=== PATIENT | female | born 1945 | race Caucasian/White ===

== ENCOUNTER 2018-05-27 14:30 | Emergency (ER) | payer MEDICARE ==
[~2018-05-27] VITALS: Wt 72.7 kg
[2018-05-27] MEDS ORDERED: SOD CHLORIDE 0.9% 1,000 ML IV STA (16:42)
[2018-05-27] MEDS ORDERED: ASPIRIN 81 MG TAB PO STA (16:42)
--- NOTE | 2018-05-27 17:46 | ERD ---
ER Documentation Chief Complaint Chief Complaint Palpitations HPI This is a 72-year-old female who said she was looking at her iPhone and suddenly her visual field bilaterally became a tunnel vision that went away after about 2-3 seconds, right after that she started getting heart palpitations/tachycardia but did not take her pulse for about 30 minutes, she said she was having anxiety about the visual change she was having tremors in her arms and numbness in her hands. She had no focal neurological complaints of numbness weakness speech change, and currently she feels back to normal. The patient has been taking Claritin-D over the past week for a sinus issue ROS All systems reviewed and are negative except as per history of present illness. Allergies Allergies: Coded Allergies: Penicillins (Verified Allergy, Intermediate, 05/27/18) Pt states I have a sensativity , I get a yeast infection. PMhx/Soc History of Surgery: Yes (L hand surgery, tubal ligation) Anesthesia Reaction: No Hx Neurological Disorder: No Hx Respiratory Disorders: No Hx Cardiac Disorders: No Hx Psychiatric Problems: No Hx Alcohol Use: Yes (socially) Hx Substance Use: No Hx Tobacco Use: No (Quit 2 years ago. ) Smoking Status: Former smoker FmHx Family History: No coronary disease Physical Exam Vitals Vital Signs Date Temp Pulse Resp B/P (MAP) Pulse Ox O2 O2 Flow FiO2 Time Delivery Rate 05/27/18 91 18 132/112 96 Room Air 18:24 (119) 05/27/18 91 18 127/84 96 Room Air 17:54 (98) 05/27/18 2 16:57 05/27/18 2.0 16:27 05/27/18 98.8 108 22 133/88 96 Room Air 16:27 (103) 05/27/18 99.0 133 18 165/80 99 14:33 (108) Physical Exam Const: Well-developed, well-nourished Head: Atraumatic, normocephalic Eyes: Normal Conjunctiva, PERRLA, EOMI, normal sclera, no nystagmus ENT: Normal External Ears, Nose and Mouth, moist mucus membranes. Neck: Full range of motion. No meningismus, no lymphadenopathy. Resp: Clear to auscultation bilaterally, no wheezing, rhonchi, rales Cardio: Regular rate and rhythm, no murmurs, S1 S2 present Abd: Soft, non tender x 4, non distended. Normal bowel sounds, no guarding or rebound, no pulsitile abdominal masses or bruits Skin: No petechiae or rashes, no ecchymosis , no maculopapular rash Back: No midline or flank tenderness Ext: No cyanosis, or edema, FROM x 4, normal inspection, neurovascularly intact x 4 Neur: Awake and alert, STR 5/5 x 4, sensation intact x 4, no focal findings, cerebellum intact Psych: Normal Mood and Affect Result Diagram: 05/27/18 1654 05/27/18 1654 Results 24 hrs Laboratory Tests Test 05/27/18 16:54 White Blood Count 6.3 10^3/ul Red Blood Count 4.42 10^6/ul Hemoglobin 12.9 g/dl Hematocrit 39.4 % Mean Corpuscular Volume 89.1 fl Mean Corpuscular Hemoglobin 29.2 pg Mean Corpuscular Hemoglobin Concent 32.7 g/dl Red Cell Distribution Width 12.6 % Platelet Count 202 10^3/UL Mean Platelet Volume 9.5 fl Immature Granulocytes % 0.500 % Neutrophils % 56.7 % Lymphocytes % 34.3 % Monocytes % 7.7 % Eosinophils % 0.5 % Basophils % 0.3 % Nucleated Red Blood Cells % 0.0 /100WBC Immature Granulocytes # 0.030 10^3/ul Neutrophils # 3.6 10^3/ul Lymphocytes # 2.2 10^3/ul Monocytes # 0.5 10^3/ul Eosinophils # 0.0 10^3/ul Basophils # 0.0 10^3/ul Nucleated Red Blood Cells # 0.0 10^3/ul Prothrombin Time 12.6 Sec Prothrombin Time Ratio 1.0 INR International Normalized Ratio 0.93 Activated Partial Thromboplast Time 29.9 Sec Sodium Level 141 mmol/L Potassium Level 4.1 mmol/L Chloride Level 105 mmol/L Carbon Dioxide Level 25 mmol/L Anion Gap 11 Blood Urea Nitrogen 12 mg/dl Creatinine 0.63 mg/dl Est Glomerular Filtrat Rate mL/min > 60 mL/min Glucose Level 273 mg/dl Calcium Level 9.5 mg/dl Total Bilirubin 0.9 mg/dl Direct Bilirubin 0.00 mg/dl Indirect Bilirubin 0.9 mg/dl Aspartate Amino Transf (AST/SGOT) 73 IU/L Alanine Aminotransferase (ALT/SGPT) 105 IU/L Alkaline Phosphatase 81 IU/L Troponin I < 0.012 ng/ml Total Protein 7.4 g/dl Albumin 4.3 g/dl Globulin 3.10 g/dl Albumin/Globulin Ratio 1.38 Current Medications Medications Dose Sig/Everett Start Time Status Last (Trade) Ordered Route PRN Stop Time Admin Dose Reason Admin Sodium 1,000 ml @ Q1H STAT 05/27/18 DC 05/27/18 Chloride 1,000 mls/hr IV 16:42 05/27/18 16:57 17:41 Aspirin 162 mg ONCE STAT 05/27/18 DC 05/27/18 (Aspirin) PO 16:42 05/27/18 16:56 16:44 Procedures/MDM EKG: Rate/Rhythm: Sinus tachycardia heart rate [address] changes. QRS, ST, QT: NORMAL SC, QRS, QT] Impression: Sinus tachycardia During the exam her heart rate is 96 Patient: LUL LUNA : 1945 Age: 72 Sex: F MR #: [id number] DOS: 05/27/18 1642 Ordering MD: JOSIE GUTIERREZ DO Location: E/R Room/Bed: PROCEDURE: CT Brain without contrast. CLINICAL INDICATION: Blurry vision TECHNIQUE: A CT of the brain was performed on a multi-slice CT scanner utilizing axial imaging from the skull base through the vertex without IV contrast. Coronal and sagittal re-formations were created. Images were reviewed on a PACS workstation. The CTDIvol is 39 mGy and the DLP is 634 mGycm. DICOM images are available. 3-D reconstructions were not performed. One or more of the following dose reduction techniques were utilized: 1.) Automated exposure control 2.) Adjustment of the mA +/- kV according to patient's size 3.) Use of iterative reconstruction technique. COMPARISON: None FINDINGS: The basilar cisterns, ventricular spaces and sulcal spaces are normal in size a nd configuration. There is no midline shift or other evidence of mass effect. There are no abnormal foci of increased attenuation in the brain parenchyma. No abnormal foci of diminished attenuation are present. Bone-windows show no lytic or blastic calvarial lesions. The visualized paranasal sinuses and mastoid air cells are clear. IMPRESSION: 1. Unremarkable unenhanced computed tomograms of the head without evidence of intracranial hemorrhage, mass, or acute infarct. RPTAT:AAJJ Brian Cramer Physician Date Time Electronically viewed and signed by Brian Cramer Physician on 05/27/2018 18:46 GW/ CC: JOSIE GUTIERREZ DO [id number] Chest X-ray 1V Interpreted by me: Soft Tissue: No acute abnormalities Bones: No acute abnormalities Mediastinum/Cardiac Silhouette/Lungs: No acute abnormalities Patient symptoms could be an ophthalmic migraine, could be due to blood pressure elevation as it was high when she came in. May have had some brief vasospasm, patient symptoms only lasted 3 seconds and I think this created an anxiety reaction her causing some anxiety with numbness in her hands and tremors and tachycardia. The patient feels better now her blood pressures currently 104/78. There is no strict warning signs to return Departure Diagnosis: Primary Impression: Blurry vision Additional Impression: Palpitations Condition: Stable JOSIE GUTIERREZ DO May 27, 2018 17:46
[2018-05-27 19:41] VITALS: BP 96/76; PULSE 91; RESP 18
== END 2018-05-27 19:42 | disposition home or self-care (01) ==
LOC: E/R 14:30
DX: H53.8 Other visual disturbances (principal); R20.0 Anesthesia of skin; R07.9 Chest pain, unspecified; Z87.891 Personal history of nicotine dependence
CPT/HCPCS: 36415; 70450; 71045; 80053; 84484; 85025; 85610; 85730; 99285; J7030